=== PATIENT | male | born 1990 | race Caucasian/White ===

== ENCOUNTER 2020-02-16 23:12 | Emergency (ER) | payer OTHER ==
[2020-02-17] MEDS ORDERED: ONDANSETRON ODT 4 MG TABLET TL STA (00:07)
--- NOTE | 2020-02-17 00:12 | ED Physician Documentation ---
PD HPI NVD - Stated complaint Stated Complaint: VOMITING, DIARRHEA - Chief complaint Chief Complaint: Abd Pain - History obtained from History obtained from: Patient - History of Present Illness Timing - onset: Enter time (17:00), Today Timing - details: Abrupt onset Pain level max: 0 Pain level now: 0 Associated symptoms: No: Fever, Abdominal pain Contributing factors: No: Sick contact, Bad food, Travel, Recent antibiotics, Alcohol use, Anticoagulated, Diabetes Improved by: Other (no ameliorating factors) Worsened by: Other (no exacerbating factors) Recently seen: Not recently seen Review of Systems Constitutional: denies: Fever, Chills, Sweats Cardiac: reports: Reviewed and negative Respiratory: reports: Reviewed and negative GI: reports: Nausea, Vomiting, Diarrhea. denies: Abdominal Pain PD PAST MEDICAL HISTORY - Past Medical History Past Medical History: No - Past Surgical History Past Surgical History: No - Present Medications Home Medications: Ambulatory Orders Medication Instructions Recorded Confirmed Diphenoxylate/Atropine [Lomotil] 1 each PO QID PRN #10 tablet 02/17/20 Ondansetron Odt [Zofran] 4 mg TL Q6H PRN #10 tablet 02/17/20 - Allergies Allergies/Adverse Reactions: Allergies Allergy/AdvReac Type Severity Reaction Status Date / Time No Known Drug Allergies Allergy Verified 02/16/20 23:49 PD ED PE NORMAL - Vitals Vital signs reviewed: Yes - General General: Alert and oriented X 3, No acute distress, Well developed/nourished - HEENT HEENT: Moist mucous membranes - Neck Neck: Supple, no meningeal sign - Cardiac Cardiac: RRR, No murmur - Abdomen Abdomen: Normal bowel sounds, Soft, Non tender, Non distended, No organomegaly Results - Vitals Vitals: Vital Signs - 24 hr 02/16/20 02/17/20 23:48 00:29 Temperature 36.7 C 36.9 C Heart Rate 81 80 Respiratory 16 20 Rate Blood Pressure 144/105 H 143/103 H O2 Saturation 97 98 Oxygen O2 Source Room air PD MEDICAL DECISION MAKING - ED course Complexity details: considered differential, d/w patient ED course: well-appearing/NAD w/ few hours of nausea, vomiting, diarrhea. denies fevers, abdominal pain. he appears well-hydrated and says he has been tolerating PO fluids. given zofran, lomotil, and d/c with rx for same. emergent testing not indicated at this time Departure - Departure Disposition: 01 Home, Self Care Clinical Impression: Vomiting and diarrhea Condition: Good Instructions: ED Diet Vomiting Diarrhea, ED Vomiting Diarrhea Nonspecific Ad Prescriptions: Diphenoxylate/Atropine [Lomotil] 1 each PO QID PRN #10 tablet PRN Reason: Diarrhea Ondansetron Odt [Zofran] 4 mg TL Q6H PRN #10 tablet PRN Reason: Nausea / Vomiting Forms: Activity restrictions Discharge Date/Time: 02/17/20 00:30
[2020-02-17] MEDS ORDERED: DIPHENOX/ATROPINE 2.5/0.025 MG TABLET PO STA (00:20)
[2020-02-17] MEDS ORDERED: ONDANSETRON ODT 4 MG Prepack 2 TL STA (00:23)
[2020-02-17 00:29] VITALS: BP 143/103
== END 2020-02-17 00:30 | disposition home or self-care (01) ==
LOC: ED 23:12
DX: R11.2 Nausea with vomiting, unspecified (principal); R19.7 Diarrhea, unspecified
CPT/HCPCS: 99282; 99284; A9270; Q0162

== ENCOUNTER 2023-05-15 14:03 | Outpatient (CLI) | payer OTHER ==
--- NOTE | 2023-05-15 17:10 | XRAY Report ---
PROCEDURE: Hand 3 View RT INDICATIONS: PAIN IN HAND TECHNIQUE: 3 views of the hand(s) acquired. COMPARISON: None. FINDINGS: Bones: No fractures or dislocations. No suspicious bony lesions. Soft tissues: No suspicious soft tissue calcifications or masses. IMPRESSION: No acute bony abnormality. Reviewed by: Michele Vargas MD on 05/15/2023 4:09 PM [facility] Approved by: Michele Vargas MD on 05/15/2023 4:09 PM [facility] Station ID: [id number]
--- NOTE | 2023-05-15 17:11 | XRAY Report ---
PROCEDURE: Knee 3 View LT INDICATIONS: KNEE PAIN TECHNIQUE: 3 views of the left knee(s) were acquired. COMPARISON: None. FINDINGS: Bones: No fractures or dislocations. No suspicious bony lesions. Soft tissues: No knee joint effusion. No suspicious soft tissue calcifications or masses. IMPRESSION: No acute bony abnormality. Reviewed by: Michele Vargas MD on 05/15/2023 4:10 PM [facility] Approved by: Michele Vargas MD on 05/15/2023 4:10 PM [facility]DT Station ID: [id number]
== END 2023-05-15 14:04 | disposition home or self-care (01) ==
LOC: DI 14:03
PROVIDERS: ATTEND Registered Nurse
DX: M25.541 Pain in joints of right hand (principal); M25.562 Pain in left knee

== ENCOUNTER 2023-07-13 15:30 | Outpatient (CLI) | payer OTHER ==
[2023-07-13 17:47] LABS: BASOPHILS # (AUTO) 0.1 10^3/uL (0.0-0.1); EOSINOPHILS # (AUTO) 0.2 10^3/uL (0.0-0.7); EOSINOPHILS % (AUTO) 2.3 %; HCT - HEMATOCRIT 40.2 % (42.0-52.0); HGB - HEMOGLOBIN 13.5 g/dL (14.0-18.0); LYMPHOCYTES # (AUTO) 2.1 10^3/uL (1.5-3.5); LYMPHOCYTES % (AUTO) 25.5 %; MEAN CORPUSCULAR HEMOGLOBIN 30.2 pg (27.0-31.0); MEAN CORPUSCULAR HGB CONC 33.6 g/dL (32.0-36.0); MEAN CORPUSCULAR VOLUME 89.9 fL (80.0-94.0); MEAN PLATELET VOLUME 11.8 fL (7.4-11.4); MONOCYTES # (AUTO) 0.7 10^3/uL (0.0-1.0); MONOCYTES % (AUTO) 8.4 %; NEUTROPHILS # (AUTO) 5.2 10^3/uL (1.5-6.6); NEUTROPHILS % (AUTO) 61.5 %; PLT - PLATELET COUNT 249 10^3/uL (130-450); RED BLOOD COUNT 4.47 10^6/uL (4.70-6.10); RED CELL DISTRIBUTION WIDTH 12.2 % (12.0-15.0); WHITE BLOOD COUNT 8.4 x10^3/uL (4.8-10.8)
[2023-07-13 18:10] LABS: ALBUMIN 4.4 g/dL (3.2-5.5); ALBUMIN/GLOBULIN RATIO 1.6 (1.0-2.2); BILIRUBIN,TOTAL 0.6 mg/dL (0.2-1.0); CALCIUM 9.7 mg/dL (8.5-10.3); TOTAL PROTEIN 7.2 g/dL (6.4-8.9)
[2023-07-13 18:17] LABS: THYROID STIMULATING HORMONE 1.35 uIU/mL (0.34-5.60)
== END 2023-07-13 15:45 | disposition home or self-care (01) ==
LOC: LAB.N 15:30
PROVIDERS: ATTEND Family Medicine
DX: R51.9 Headache, unspecified (principal); R53.83 Other fatigue; R10.13 Epigastric pain
CPT/HCPCS: 36415; 80053; 83690; 84443; 85025; 85651